=== PATIENT | female | born 2000 | race Two or more races ===

== ENCOUNTER 2023-04-18 13:43 | Emergency (ER) | payer OTHER ==
[~2023-04-18] VITALS: Ht 144.8 cm; Wt 40.8 kg
[2023-04-18] MEDS ORDERED: SPRINTEC 28 DA1 EACH PO (13:59)
[2023-04-18 15:55] LABS: HEMATOCRIT 38.9 % (36.0-45.00); HEMOGLOBIN 13.5 g/dL (12.0-15.00); MEAN CELL VOLUME 83.9 fL (80.00-100.00); MEAN CORPUSCULAR HEMOGLOBIN 29.1 pg (27.00-32.0); MEAN CORPUSCULAR HGB CONC 34.8 g/dl (32.0-36.0); RED BLOOD COUNT 4.63 M/uL (4.00-6.00)
[2023-04-18 15:56] LABS: PLATELET COUNT 132 K/uL (150-450); RED CELL DISTRIBUTION WIDTH 12.2 % (11.5-14.5)
[2023-04-18] MEDS ORDERED: AMOX-CLAV 875-1 EAC1 PO (20:30)
[2023-04-18] MEDS ORDERED: MEDROLPACK PO (20:30)
== END 2023-04-18 20:53 | disposition home or self-care (01) ==
LOC: ER 13:43
PROVIDERS: General Practice
DX: R53.81 Other malaise (principal); J02.9 Acute pharyngitis, unspecified; Z20.822 Contact with and (suspected) exposure to COVID-19

== ENCOUNTER 2024-04-22 23:43 | Emergency (ER) | payer OTHER ==
[~2024-04-22] VITALS: Ht 144.8 cm; Wt 49.9 kg
[~2024-04-22 23:43] MED LIST: AMOX-CLAV 875-1 EAC1 PO; MEDROLPACK PO; SPRINTEC 28 DA1 EACH PO
[2024-04-23] MEDS ORDERED: LACTULOSE 20 G/30 ML BLIST.PACK PO STA (05:44)
[2024-04-23] MEDS ORDERED: HYOSCYAMINE SULFATE 0.125 MG TAB.SUBL SL ONE (05:45)
== END 2024-04-23 05:58 | disposition home or self-care (01) ==
LOC: ER 23:45
DX: R53.81 Other malaise (principal); K59.01 Slow transit constipation; Z88.6 Allergy status to analgesic agent